=== PATIENT | male | born 1950 | race Caucasian/White ===

== ENCOUNTER → 2018-01-21 | Outpatient (CLI) | payer BC ==
[~2018-01-21] MED LIST: ESCITALOPRAM OX20 MG PO; LEVAQUIN500 MG PO; SINGULAIR10 MG PO; SYNTHROID150 MCG PO; TESSALON PERLE100 MG PO
--- NOTE | 2018-01-21 14:14 | Diagnostic Imaging Report ---
PROCEDURE:X-RAY LEFT SHOULDER, COMPLETE COMPARISON:None. INDICATIONS:LEFT SHOULDER PAIN FINDINGS: There are no fractures, dislocations, lytic or blastic lesions. The bones are well-mineralized. Mild AC joint irregularity is compatible with degenerative change. The soft-tissues are unremarkable. CONCLUSION: Mild AC joint degenerative change. Paul Luz D.O. Dictated by: Paul Luz D.O. on 01/21/2018 at 14:21 Electronically approved by: Paul Luz D.O. on 01/21/2018 at 14:21
== END ==
LOC: RAD 09:42
PROVIDERS: ATTEND Specialist
DX: M25.512 Pain in left shoulder (principal)